=== PATIENT | male | born 1955 | race Caucasian/White ===

== ENCOUNTER 2017-04-16 13:23 | Inpatient (IN) | payer OTHER, MEDICARE ==
[~2017-04-16] VITALS: Ht 190.5 cm; Wt 132.0 kg
[2017-04-20] MEDS ORDERED: HYDR8TAB PO (11:54)
[2017-04-20] MEDS ORDERED: OMEP20TA PO (11:54)
[2017-04-20] MEDS ORDERED: METH10TA PO (11:54)
[2017-04-20] MEDS ORDERED: SIMV80TA PO (11:54)
[2017-04-20] MEDS ORDERED: POTA-255 PO (11:54)
[2017-04-20] MEDS ORDERED: LACTCAP8 PO (11:54)
[2017-04-20] MEDS ORDERED: VITA150T PO (11:54)
[2017-04-20] MEDS ORDERED: CHOL5000 PO (11:54)
[2017-04-20] MEDS ORDERED: MAGN500T2 PO (11:54)
[2017-04-20] MEDS ORDERED: LISI10TA3 PO (11:54)
[2017-04-23] MEDS ORDERED: ENOX40P SQ (07:07)
[2017-04-23] MEDS ORDERED: ASPI81CH37 CHEW (07:08)
[2017-04-23] MEDS ORDERED: POVIDONE IODINE 5% (ANTISEPSIS KIT) 4 APPLICATIONS EACH NARE PRN (07:15)
[2017-04-23] MEDS ORDERED: CHLORHEXIDINE GLUCONATE 4% SOLN 120 ML BTL TOPICAL SCH (07:15)
[2017-04-23] MEDS ORDERED: diphenhydrAMINE HCL 50 MG/ML VIAL IV PRN ×2 (07:15→17:30)
[2017-04-23] MEDS ORDERED: Post-op Orders (for Pharmacy) MISC XX ONE ×2 (07:15→17:30)
[2017-04-23] MEDS ORDERED: ONDANSETRON HCL 4 MG/2 ML VIAL IVP PRN ×2 (07:15→17:30)
[2017-04-23] MEDS ORDERED: METOPROLOL TARTRATE 25 MG TAB PO PRN (07:15)
[2017-04-23] MEDS ORDERED: POVIDONE IODINE 7.5% SCRUB 118 ML BOTTLE TOPICAL SCH (07:15)
[2017-04-23] MEDS ORDERED: CHLORHEXIDINE GLUCONATE 2 % 1 PACK (2 CLOTHS) TOPICAL PRN (07:15)
[2017-04-23] MEDS ORDERED: LACTATED RINGER'S 1000 ML IV PRN (07:15)
[2017-04-23] MEDS ORDERED: VANCOMYCIN 1000 MG/NS 250 ML (for <70 kg) IV SCH ×2 (07:15)
[2017-04-23] MEDS ORDERED: NALOXONE HCL 0.4 MG/ML AMP IV PRN ×2 (07:15→17:30)
[2017-04-23] MEDS ORDERED: SODIUM CHLORIDE 0.9% FLUSH 5 ML FLUSH IVF PRN ×2 (07:15→17:30)
[2017-04-23] MEDS ORDERED: INSULIN HUMAN REGULAR 1,000 UNITS/10 ML VIAL SQ PRN (07:15)
[2017-04-23] MEDS ORDERED: BISACODYL 10 MG SUPP RECTAL PRN ×2 (07:15→17:30)
[2017-04-23] MEDS ORDERED: MORPHINE SULFATE 4 MG/ML INJ IV PUSH PRN (07:15)
[2017-04-23] MEDS ORDERED: SODIUM CHLORID 0.9% 500 ML IV PRN (07:15)
[2017-04-23] MEDS ORDERED: TRANEXAMIC ACID IV SCH (07:30)
[2017-04-23] MEDS ORDERED: SODIUM CHLORIDE 0.9% IV SCH (07:30)
[2017-04-23] MEDS ORDERED: ROPIVACAINE PERI-ARTICULAR INJECTION. P-ARTICULR SCH ×5 (07:30)
[2017-04-23] MEDS ORDERED: TRANEXAMIC PERI-ARTICULAR 3,000 MG/NS 100 ML P-ARTICULR SCH ×2 (07:30)
[2017-04-23 07:37] VITALS: BP 135/81; PULSE 81; RESP 18; TEMP 98.9; O2SAT 94
[2017-04-23] MEDS ORDERED: DEXAMETHASONE SOD PHOS 20 MG/5 ML VIAL IV ONE (08:00)
[2017-04-23] MEDS ORDERED: SODIUM CHLOR 0.9% 1000 ML INJ 1,000 ML IV SCH (08:00)
[2017-04-23] MEDS ORDERED: BUPIVACAINE HCL PF 0.5% 30 ML VIAL NERV BLOCK ONE (08:49)
[2017-04-23] MEDS ORDERED: BUPIVACAINE LIPOSOME PF 1.3% 20 ML VIAL ONE (08:49)
[2017-04-23] MEDS ORDERED: DEXAMETHASONE SOD PHOS PF 10 MG/ML VIAL IV ONE (08:49)
[2017-04-23] MEDS ORDERED: VITAMIN B COMPLEX VIT C NO 4 PO SCH (09:00)
[2017-04-23] MEDS ORDERED: SODIUM CHLORIDE 0.9% FLUSH 5 ML FLUSH IVF SCH (09:00)
[2017-04-23] MEDS ORDERED: NON-FORMULARY DRUG (Potassium Gluconate (Potassium) 1 TAB) PO SCH (09:00)
[2017-04-23] MEDS: ceFAZolin 2 GM PREMIX 50 ML IV SCH ×3 (09:00→23:31)
[2017-04-23] MEDS ORDERED: DEXAMETHASONE SOD PHOS 4 MG/ML VIAL ONE (09:32)
[2017-04-23] MEDS ORDERED: FAMOTIDINE 20 MG/2 ML VIAL ONE (09:32)
[2017-04-23] MEDS: METHADONE HCL 10 MG TAB PO SCH ×3 (10:00→20:42)
[2017-04-23] MEDS ORDERED: cloNIDine HCL 0.1 MG TAB PO PRN (10:00)
[2017-04-23] MEDS ORDERED: GENTAMICIN SULFATE 80 MG/2 ML VIAL ONE (11:05)
[2017-04-23] MEDS ORDERED: NEOSTIGMINE 3 MG/3 ML SYR IV ONE (12:00)
[2017-04-23] MEDS ORDERED: ePHEDrine/NS 25 MG/5 ML SYR IV ONE ×2 (12:00)
[2017-04-23] MEDS ORDERED: PHENYLEPH/NS 1000 MCG/10 ML SYR IV ONE ×2 (12:00)
[2017-04-23] MEDS ORDERED: PROPOFOL 200 MG/20 ML AMP IV ONE ×2 (12:00)
[2017-04-23] MEDS ORDERED: LACTATED RINGER'S 1000 ML INJ 1,000 ML IV ONE ×2 (12:00)
[2017-04-23] MEDS ORDERED: ONDANSETRON HCL 4 MG/2 ML VIAL IV PUSH ONE ×2 (12:00)
[2017-04-23] MEDS ORDERED: DO NOT ADM ANY ANTICOAGULANT DRUGS PRN ×2 (12:48→19:30)
[2017-04-23] MEDS ORDERED: *HYDROmorphone PF 1 MG VIAL PERIprocedural Use ONLY ONE (12:51)
[2017-04-23] MEDS ORDERED: fentaNYL CITRATE 250 MCG/5 ML AMP ONE ×2 (12:53→18:38)
[2017-04-23] MEDS ORDERED: MIDAZOLAM HCL 2 MG/2 ML VIAL ONE (12:53)
[2017-04-23] MEDS ORDERED: *morphine SULFATE 8 MG/ML PERIprocedure ONLY ONE (13:03)
[2017-04-23] MEDS ORDERED: HYDROmorphone HCL PF 1 MG/ML VIAL IV ONE (13:15)
--- NOTE | 2017-04-23 13:33 | RADRPT ---
EXAM DATE/TIME: 04/23/2017 13:03 [facility] COMPARISON: No previous studies available for comparison. INDICATIONS : Post op right knee MEDICAL HISTORY : None. SURGICAL HISTORY : right knee ENCOUNTER: Initial ACUITY: 1 day PAIN SCORE: Non-responsive. LOCATION: Right knee FINDINGS: Patient is status post placement of a right knee prosthesis. There is good position and alignment of the prosthesis and bony structures. The bony structures are grossly intact. Postsurgical changes are present. CONCLUSION: Good position and alignment on this postoperative examination. Chiki Verdugo MD on April 23, 2017 at 13:30 Board Certified Radiologist. This report was verified electronically.
[2017-04-23] MEDS ORDERED: ceFAZolin 2 GM PREMIX 50 ML IV SCH (15:00)
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
[2017-04-23 15:16] VITALS: BP 134/68; PULSE 92; RESP 20; TEMP 98.4; O2SAT 96
--- NOTE | 2017-04-23 15:27 | PD.ORT.PN ---
Objective Vitals Vital Signs Date Time Temp Pulse Resp B/P Pulse Ox O2 Delivery O2 Flow Rate FiO2 04/23/17 14:15 97 12 112/62 97 Nasal Cannula 4 04/23/17 14:00 95 12 103/58 93 Nasal Cannula 4 04/23/17 13:45 81 12 107/56 92 Nasal Cannula 4 04/23/17 13:30 110 16 107/56 94 Nasal Cannula 4 04/23/17 13:15 99 13 112/64 97 Nasal Cannula 4 04/23/17 13:00 103 15 119/72 95 Nasal Cannula 4 04/23/17 12:42 98.2 108 12 134/86 91 Nasal Cannula 4 04/23/17 07:37 98.9 81 18 135/81 94 I/O 04/22/17 04/22/17 04/22/17 04/23/17 04/23/17 04/23/17 07:00 15:00 23:00 07:00 15:00 23:00 Intake Total 1200 ml Output Total 550 ml Balance 650 ml Intake Other 1200 ml Output Urine Total 500 ml Estimated Blood Loss 50 ml Imaging Last 24 hours Impressions Knee X-Ray 04/23/17 0705 Signed Impressions: Service Date/Time: Sunday, April 23, 2017 13:03 - CONCLUSION: Good position and alignment on this postoperative examination. Chiki Verdugo MD Assessment & Plan Ortho Post Op Day #: 0 Problem List: Assessment and Plan s/p Revision R TKA wbat daily dressing changes lovenox d/c planning home with [facility] and pt f/up dr. [place] 2 weeks Tony Preston Apr 23, 2017 15:27
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
--- NOTE | 2017-04-23 15:31 | HHI.FF ---
Face to Face Verification Diagnosis: (1) Primary localized osteoarthrosis, lower leg Physical Therapy Gait training, Safety evaluation, Transfer training, bed to chair Knee: Total knee, Protocol: Right, Full weight bearing Right LE Weight Bearing: WB as tolerated Nursing RN: 3 days/week x 2 weeks Nursing: Yennifer teaching, Dressing changes Dressing Changes: Do not change dressing I have seen patient Ab Valenzuela on 04/23/17. My clinical findings support the need for the requested home health care services because: Limited ability to care for self High risk of falls I certify that my clinical findings support that this patient is homebound because: Post-op weakness Unsteady gait/balance Tony Preston Apr 23, 2017 15:31
[2017-04-23] MEDS ORDERED: WALKER WHEELS/F1 MIS (15:34)
[2017-04-23] MEDS ORDERED: COMMODE 3-IN-11 MIS (15:34)
[2017-04-23] MEDS ORDERED: CPMMACHINE (15:34)
[2017-04-23 16:00] VITALS: BP 137/70; PULSE 92; RESP 20; TEMP 97.1; O2SAT 95
--- NOTE | 2017-04-23 16:51 | RADRPT ---
EXAM DATE/TIME: 04/23/2017 16:35 [facility] COMPARISON: KNEE RIGHT LTD (1 OR 2 VWS), April 23, 2017, 13:03. INDICATIONS : Evaluate knee for trauma, fell MEDICAL HISTORY : Arthritis. SURGICAL HISTORY : Total knee replacement, right. ENCOUNTER: Subsequent ACUITY: 1 day PAIN SCORE: 0/10 LOCATION: Right Knee FINDINGS: Two view examination of the right knee demonstrates a total knee prosthesis in place. No acute fractu re or dislocation is demonstrated. No significant joint effusion. Postsurgical changes are still demo nstrated on today's study. No significant change compared to the prior exam. CONCLUSION: Stable plain films of the right knee. Chiki Verdugo MD on April 23, 2017 at 16:48 Board Certified Radiologist. This report was verified electronically.
[2017-04-23] MEDS ORDERED: ZOLPIDEM TARTRATE 5 MG TAB PO PRN ×2 (17:30→21:00)
[2017-04-23] MEDS ORDERED: GENTAMICIN SULFATE 80 MG/2 ML VIAL IRRIGATION ONE (17:48)
[2017-04-23] MEDS ORDERED: SUGAMMADEX SODIUM 200 MG/2 ML VIAL IV PUSH ONE ×2 (18:11)
[2017-04-23 19:45] VITALS: BP 138/76; PULSE 89; RESP 18; TEMP 96.3; O2SAT 99
[2017-04-23] MEDS: PANTOPRAZOLE SOD 20 MG DELAYED RELEASE TAB PO SCH (20:42)
[2017-04-23] MEDS: SODIUM CHLORIDE 0.9% FLUSH 5 ML FLUSH IVF SCH (20:43)
[2017-04-23 20:45] VITALS: BP 112/78; PULSE 88; RESP 19; TEMP 97.6; O2SAT 98
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
[2017-04-23 21:39] VITALS: O2SAT 94
[2017-04-23] MEDS: MORPHINE SULFATE 4 MG/ML INJ IV PUSH PRN (23:37)
[2017-04-24] VITALS (8 sets, daily range): BP systolic 98–148; BP diastolic 56–85; PULSE 79–99; RESP 18–19; TEMP 96.6–98.7; O2SAT 93–99
[2017-04-24] MEDS: SODIUM CHLOR 0.9% 1000 ML INJ 1,000 ML IV SCH ×2 (04:00→12:47)
[2017-04-24] MEDS: MORPHINE SULFATE 4 MG/ML INJ IV PUSH PRN ×5 (04:36→22:07)
[2017-04-24 05:03] LABS: POTASSIUM 4.5 MEQ/L (3.5-5.1)
[2017-04-24 05:06] LABS: HEMATOCRIT 31.1 % (39.0-51.0); MEAN CORPUSCULAR HEMOGLOBIN 29.8 PG (27.0-34.0); MEAN CORPUSCULAR HGB CONC 33.1 % (32.0-36.0); PLATELET COUNT 173 TH/MM3 (150-450); RED BLOOD COUNT 3.46 MIL/MM3 (4.50-5.90); RED CELL DISTRIBUTION WIDTH 12.9 % (11.6-17.2); REVIEW FLAG FINAL; WHITE BLOOD COUNT 14.6 TH/MM3 (4.0-11.0)
[2017-04-24] MEDS: ceFAZolin 2 GM PREMIX 50 ML IV SCH ×2 (06:25→12:47)
[2017-04-24] MEDS: METHADONE HCL 10 MG TAB PO SCH ×5 (06:25→22:04)
[2017-04-24] MEDS: MAGNESIUM OXIDE 400 MG TAB PO SCH ×3 (08:00→17:18)
[2017-04-24] MEDS: VITAMIN B COMPLEX/VIT C TAB PO SCH (08:43)
[2017-04-24] MEDS: PANTOPRAZOLE SOD 20 MG DELAYED RELEASE TAB PO SCH ×2 (08:43→19:51)
[2017-04-24] MEDS: SODIUM CHLORIDE 0.9% FLUSH 5 ML FLUSH IVF SCH ×2 (08:44→19:52)
[2017-04-24] MEDS: LISINOPRIL 10 MG TAB PO SCH (08:44)
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
--- NOTE | 2017-04-24 10:39 | PD.ORT.PN ---
Subjective Subjective Remarks Patient comfortable. Pain controlled. Objective Vitals Vital Signs Date Time Temp Pulse Resp B/P Pulse Ox O2 Delivery O2 Flow Rate FiO2 04/24/17 08:34 98 Nasal Cannula 2.00 04/24/17 08:00 96.7 80 18 108/60 93 04/24/17 04:45 96.6 79 18 100/65 98 04/24/17 00:45 97.5 99 18 98/59 96 04/23/17 21:39 94 High Flow Nasal Cannula 2.00 04/23/17 20:45 97.6 88 19 112/78 98 04/23/17 19:57 Nasal Cannula 2.00 04/23/17 19:45 96.3 89 18 138/76 99 04/23/17 19:30 80 16 106/60 97 Nasal Cannula 2 04/23/17 19:15 89 16 107/59 97 Nasal Cannula 2 04/23/17 19:00 70 16 100/55 97 Nasal Cannula 2 04/23/17 18:45 71 16 106/58 99 Nasal Cannula 2 04/23/17 18:32 97.6 85 16 110/60 98 Nasal Cannula 2 04/23/17 16:00 97.1 92 20 137/70 95 04/23/17 15:16 98.4 92 20 134/68 96 04/23/17 14:15 97 12 112/62 97 Nasal Cannula 4 04/23/17 14:00 95 12 103/58 93 Nasal Cannula 4 04/23/17 13:45 81 12 107/56 92 Nasal Cannula 4 04/23/17 13:30 110 16 107/56 94 Nasal Cannula 4 04/23/17 13:15 99 13 112/64 97 Nasal Cannula 4 04/23/17 13:00 103 15 119/72 95 Nasal Cannula 4 04/23/17 12:42 98.2 108 12 134/86 91 Nasal Cannula 4 I/O 04/23/17 04/23/17 04/23/17 04/24/17 04/24/17 04/24/17 07:00 15:00 23:00 07:00 15:00 23:00 Intake Total 1200 ml 1390 ml 240 ml Output Total 550 ml 300 ml 700 ml Balance 650 ml 1090 ml -460 ml Intake Oral 240 ml 240 ml IV Total 150 ml Other 1200 ml 1000 ml Output Urine Total 500 ml 200 ml 700 ml Estimated Blood Loss 50 ml 100 ml # Bowel Movements 0 0 Result Diagram: 04/24/17 0415 04/24/17 0415 Imaging Last 24 hours Impressions Knee X-Ray 04/23/17 0705 Signed Impressions: Service Date/Time: Sunday, April 23, 2017 13:03 - CONCLUSION: Good position and alignment on this postoperative examination. Chiki Verdugo MD Objective Remarks Right knee dressing moderate bloody drainage noted dressing reinforced calves soft negative Sylvain's NVI Assessment & Plan Assessment and Plan s/p Revision R TKA POD #1 wbat orders to reinforce dressing daily dressing changes apply ice pack lovenox d/c planning home with [facility] and pt f/up dr. [place] 2 weeks Theodore Ryan Apr 24, 2017 10:38
[2017-04-24] MEDS ORDERED: ENOXAPARIN SODIUM 40 MG/0.4 ML SYRINGE SQ SCH (12:00)
[2017-04-24] MEDS: ENOXAPARIN SODIUM 40 MG/0.4 ML SYRINGE SQ SCH (17:18)
[2017-04-24] MEDS: DOCUSATE SODIUM 100 MG CAP PO SCH (19:51)
[2017-04-24] MEDS: MULTIVITAMINS/MINERALS THERAPEUTIC TAB PO SCH (19:51)
[2017-04-24] MEDS: HYDROmorphone HCL 4 MG TAB PO PRN (19:52)
--- NOTE | 2017-04-24 20:02 | MP ---
cc: CAMMIE MCMULLEN M.D. DATE OF SURGERY 04/23/2017 PREOPERATIVE DIAGNOSIS Right knee wound dehiscence status post fall, status post right total knee arthroplasty. POSTOPERATIVE DIAGNOSIS Right knee wound dehiscence status post fall, status post right total knee arthroplasty. PROCEDURE Irrigation debridement right knee with wound closure. SURGEON Dr. Cammie Mcmullen. NUTRITIONAL SERVICES [facility] [place] ANESTHES[facility]. ESTIMATED BLOOD LOSS 150 cc. TOURNIQUET TIME Zero minutes. COMPLICATIONS None. JUSTIFICATION The patient is a 61-year-old male who has undergone previous right total knee arthroplasty today. Postoperatively he decided to get up by himself and go to the bathroom without any assistance from the nursing staff. He apparently fell landing directly on the right knee. He developed pain and bleeding and the nursing staff examined the patient and saw that he had a complete dehiscence of his surgical wound. I was contacted. He was taken subsequently immediately to the operating room. The patient was counseled as to the risks, benefits and alternatives to an irrigation and debridement with wound closure. He did wish to proceed with surgery. PROCEDURE IN DETAILS A written consent was obtained. The patient identified by name, taken to the operating room, placed supine on the operating table. General anesthesia was administered as well as 2 grams of IV Ancef. The right lower extremity prepped and draped using isopropyl alcohol, Hibiclens solution and Chloraprep solution. After a time-out was performed a 10 blade scalpel was used to perform debridement to include skin, subcutaneous tissue as well as muscle and tendon and there was evidence of a dehiscence along the lateral capsule and this allowed for exposure to the joint. A thorough irrigation and debridement was performed with 6 liters sterile saline pulse lavage antibiotic impregnated solution. Subsequently the capsular dehiscence was closed primarily with #1 Vicryl suture. The subcutaneous layer was then closed with 2-0 Vicryl suture. Skin was closed Dermabond and jessa. Sterile dressing applied. The patient tolerated the procedure well with no intraoperative complications noted. MD MARYAM Mata/GRAYSON /6:26 PM /7:46 PM
[2017-04-24] MEDS ORDERED: DOCUSATE SODIUM 100 MG CAP PO SCH (21:00)
[2017-04-24] MEDS ORDERED: MULTIVITAMINS/MINERALS THERAPEUTIC TAB PO SCH (21:00)
[2017-04-25] VITALS (7 sets, daily range): BP systolic 90–133; BP diastolic 52–76; PULSE 93–110; RESP 17–20; TEMP 98.3–99.3; O2SAT 92–97
[2017-04-25] MEDS: HYDROmorphone HCL 4 MG TAB PO PRN ×5 (01:14→22:51)
[2017-04-25] MEDS: MORPHINE SULFATE 4 MG/ML INJ IV PUSH PRN (04:23)
[2017-04-25] MEDS: METHADONE HCL 10 MG TAB PO SCH ×5 (06:23→22:00)
[2017-04-25] MEDS: ENOXAPARIN SODIUM 40 MG/0.4 ML SYRINGE SQ SCH (07:55)
--- NOTE | 2017-04-25 08:14 | PD.ORT.PN ---
Subjective Post Op Day #: 2 Subjective Remarks painful knee. Objective Vitals Vital Signs Date Time Temp Pulse Resp B/P Pulse Ox O2 Delivery O2 Flow Rate FiO2 04/25/17 00:31 98.6 94 18 107/64 94 04/24/17 20:45 98.7 92 19 118/56 99 04/24/17 18:00 96 Nasal Cannula 2.00 04/24/17 16:00 97.3 86 19 119/64 96 04/24/17 12:00 97.0 87 18 110/67 96 04/24/17 08:34 98 Nasal Cannula 2.00 I/O 04/24/17 04/24/17 04/24/17 04/25/17 04/25/17 04/25/17 07:00 15:00 23:00 07:00 15:00 23:00 Intake Total 240 ml 480 ml 480 ml 480 ml Output Total 700 ml 1125 ml 350 ml 775 ml Balance -460 ml -645 ml 130 ml -295 ml Intake Oral 240 ml 480 ml 480 ml 480 ml Output Urine Total 700 ml 1125 ml 350 ml 775 ml # Voids 2 # Bowel Movements 0 0 0 Result Diagram: 04/24/17 0415 04/24/17 0415 Imaging Last 24 hours Impressions Knee X-Ray 04/23/17 0705 Signed Impressions: Service Date/Time: Sunday, April 23, 2017 13:03 - CONCLUSION: Good position and alignment on this postoperative examination. Chiki Verdugo MD Objective Remarks in bed, nad Right knee dressing bloody, removed bloody drainage from distal incision compression dressing applied no erythema calves soft negative Sylvain's NVI Assessment & Plan Ortho Post Op Day #: 2 Problem List: Assessment and Plan s/p Revision R TKA POD #2 fall after sx, s/p I&D with wound closure R TKA POD #2 wbat daily compression dressing changes or as needed apply ice pack hold lovenox today due to swelling and bloody drainage, discussed risks and benefits with patient hold CPM today d/c planning home with [facility] and pt f/up dr. [place] 2 weeks Tony Preston Apr 25, 2017 08:14
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
[2017-04-25] MEDS: SODIUM CHLORIDE 0.9% FLUSH 5 ML FLUSH IVF SCH (09:00)
[2017-04-25] MEDS: PANTOPRAZOLE SOD 20 MG DELAYED RELEASE TAB PO SCH ×2 (09:38→22:52)
[2017-04-25] MEDS: LISINOPRIL 10 MG TAB PO SCH (09:38)
[2017-04-25] MEDS: DOCUSATE SODIUM 100 MG CAP PO SCH ×2 (09:38→21:00)
[2017-04-25] MEDS: MULTIVITAMINS/MINERALS THERAPEUTIC TAB PO SCH ×2 (09:38→22:53)
[2017-04-25] MEDS: VITAMIN B COMPLEX/VIT C TAB PO SCH (09:38)
[2017-04-25] MEDS: MAGNESIUM OXIDE 400 MG TAB PO SCH ×3 (09:38→17:40)
[2017-04-25] MEDS: SODIUM CHLOR 0.9% 1000 ML INJ 1,000 ML IV SCH ×2 (09:40)
[2017-04-25 10:01] LABS: HEMATOCRIT 29.7 % (39.0-51.0); MEAN CELL VOLUME 88.8 FL (80.0-100.0); MEAN CORPUSCULAR HGB CONC 33.8 % (32.0-36.0); PLATELET COUNT 164 TH/MM3 (150-450); RED BLOOD COUNT 3.35 MIL/MM3 (4.50-5.90); REVIEW FLAG FINAL; WHITE BLOOD COUNT 11.9 TH/MM3 (4.0-11.0)
[2017-04-25 10:30] LABS: BICARBONATE 29.4 MEQ/L (21.0-32.0); POTASSIUM 4.1 MEQ/L (3.5-5.1)
--- NOTE | 2017-04-25 10:41 | MP ---
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 PROCEDURE Revision right total knee arthroplasty SURGEON Dr. Cammie Mcmullen CORRESPONDENCE SPECIALIST [facility]. BLOOD LOSS 50 mL COMPLICATIONS Implants used DePuy attune size eight rotating platform tibia baseplate, size eight rotating platform tibia baseplate, size 8 mm polyethylene tibial insert. size 41 patella. JUSTIFICATION The patient is a 61-year male who has undergone previous right knee uni-compartment arthroplasty for osteoarthritis. He has had sequential progression of pain and swelling is his right knee as related to his condition. He has failed conservative treatment and was counseled as to options of revision total knee arthroplasty. The risk of surgery were discussed which include but not limited to anesthesia, bleeding, infection, damage to nerves or blood vessels, pain, stiffness, instability, blood clots, pulmonary embolism, even . The patient's pain is severe. He has failed conservative treatments and does wish to proceed with surgical intervention. A written consent obtained. The patient identified by name, taken to the operating room, placed supine on the operating table. General anesthesia was administered as well as 2 grams of IV Ancef and 1 gram of IV vancomycin. A well-padded tourniquet was placed on the right thigh. The right extremity was prepped and draped using isopropyl alcohol, Hibiclens solution and Chloraprep solution. After time-out was performed, an Esmarch bandage was used to exsanguinate the right lower extremity. Inflated to 250 mmHg. A longitudinal incision was made over the anterior aspect of the right knee and also medially in line with the previous incision. The patella was everted. A patellar resection guide was used to resect 9 mm patella. A size 41 mm trial was placed. Three drill holes were placed and a 41 mm trial fit well. Attention was turned to the femur where an intramedullary guide lillian was placed. The distal femoral guide was set to remove 10 mm of distal femur 5 degrees off the anatomic alignment. Oscillating saw was used to perform the distal femoral cut. At this point, the saw blade was hitting the femoral component, but I got my initial resection line. I used this line to continue the cut and removal of the femoral component with both an oscillating saw and flexible osteotome. Once the femoral component was removed, I completed the saw cut with the oscillating saw and the distal femoral resection guide. Attention was turned to the tibia where the tibial component was noted to be loose. I was able to the elevate it easily with a flexible osteotome and remove this. At this point, an extramedullary tibial guide was set to resect 1 mm off the lowest portion of the tibial plateau. An oscillating saw was used to perform the tibial cut. At this point, attention was turned back to the femur where the AP sizing block measured size eight. The anterior reference three degree extra sizing guide was used to pin a size [address] and anterior and posterior chamfer cuts were performed. At this point, a size eight PCL box cut was pinned in place. A PCL was boxed with an oscillating saw. The medial and lateral meniscus remnants were removed as well as bone and soft tissue debris from posterior portion of the knee. A size eight tibia base was pinned in place to . Once evaluated trial component was cemented in place with the size 8 mm polyethylene tibial insert the leg achieved full extension at 0 degrees and flexion to 140. No evidence of tibial lift-off. Varus-valgus balance appeared appropriate and symmetric. The patella was noted to have a slight lateral tracking. A lateral release was performed which allowed for central patellar tracking. The knee was thoroughly irrigated with sterile saline pulse lavage antibiotic impregnated solution. The arthrotomy incision was closed with #1 Vicryl suture. Subcutaneous layer with 2-0 Vicryl suture. Skin was closed with Dermabond. Sterile dressing was applied. The patient tolerated procedure well. No intraoperative complications noted. Jad Preston, physician case management assistant, was present during the entire procedure to include patient positioning and procedure itself. The medical necessity of a physician case management assistant was indicated in the case due to the complexity of the procedure. He assisted with appropriate manipulation of the leg and also traction of muscle, tendon, bone as well as neurovascular structures. He assisted with removal of the prior failed arthroplasty along with preparation of bone cuts and also implantation of the new revision total knee arthroplasty. MD MARYAM Mata/ /12:19 PM /9:02 AM
[2017-04-25] MEDS: ACETAMINOPHEN 325 MG TAB PO PRN ×2 (12:15→18:49)
[2017-04-25] MEDS ORDERED: MAGNESIUM HYDROXIDE SUSP 30 ML CUP PO ONE (21:15)
[2017-04-26] VITALS (8 sets, daily range): BP systolic 74–128; BP diastolic 54–72; PULSE 79–120; RESP 18–22; TEMP 97.3–98.5; O2SAT 90–96
[2017-04-26] MEDS: HYDROmorphone HCL 4 MG TAB PO PRN ×4 (04:34→21:57)
[2017-04-26] MEDS: SODIUM CHLOR 0.9% 1000 ML INJ 1,000 ML IV SCH ×2 (06:00→16:00)
[2017-04-26 07:16] LABS: HEMATOCRIT 27.5 % (39.0-51.0); MEAN CELL VOLUME 88.9 FL (80.0-100.0); MEAN CORPUSCULAR HEMOGLOBIN 30.4 PG (27.0-34.0); MEAN CORPUSCULAR HGB CONC 34.2 % (32.0-36.0); PLATELET COUNT 152 TH/MM3 (150-450); RED BLOOD COUNT 3.09 MIL/MM3 (4.50-5.90); RED CELL DISTRIBUTION WIDTH 12.7 % (11.6-17.2); REVIEW FLAG FINAL; WHITE BLOOD COUNT 10.2 TH/MM3 (4.0-11.0)
[2017-04-26 07:32] LABS: BICARBONATE 34.3 MEQ/L (21.0-32.0)
--- NOTE | 2017-04-26 07:43 | PD.ORT.PN ---
Subjective Post Op Day #: 3 Subjective Remarks painful knee. thinks he is improving. Objective Vitals Vital Signs Date Time Temp Pulse Resp B/P Pulse Ox O2 Delivery O2 Flow Rate FiO2 04/26/17 04:00 98.1 104 18 102/61 95 04/26/17 00:00 97.8 79 18 125/63 95 04/25/17 22:58 97 114/59 04/25/17 20:00 98.3 110 20 97/52 96 04/25/17 18:42 18 04/25/17 18:36 21 04/25/17 16:00 99.3 93 18 118/59 97 04/25/17 13:15 18 04/25/17 12:00 98.4 103 17 90/61 96 04/25/17 10:39 18 04/25/17 09:26 92 21 04/25/17 08:00 98.5 109 18 133/76 93 I/O 04/25/17 04/25/17 04/25/17 04/26/17 04/26/17 04/26/17 07:00 15:00 23:00 07:00 15:00 23:00 Intake Total 480 ml 1380 ml 400 ml Output Total 775 ml 2025 ml 680 ml Balance -295 ml -645 ml -280 ml Intake Oral 480 ml 1380 ml 400 ml Output Urine Total 775 ml 2025 ml 680 ml # Bowel Movements 0 0 0 Result Diagram: 04/26/17 0623 04/26/17 0623 Imaging Last 24 hours Impressions Knee X-Ray 04/23/17 0705 Signed Impressions: Service Date/Time: Sunday, April 23, 2017 13:03 - CONCLUSION: Good position and alignment on this postoperative examination. Chiki Verdugo MD Objective Remarks in bed, nad Right knee dressing bloody, removed bloody drainage from distal incision, improved from yesterday compression dressing applied no erythema calves soft negative Sylvain's NVI Assessment & Plan Ortho Post Op Day #: 3 Problem List: Assessment and Plan s/p Revision R TKA POD #3 fall after sx, s/p I&D with wound closure R TKA POD #3 wbat daily compression dressing changes or as needed apply ice pack hold lovenox again today due to swelling and bloody drainage, discussed risks and benefits with patient. likely will be able to resume Sunday hold CPM today, likely resume Sunday d/c planning home with [facility] and pt f/up dr. [place] 2 weeks Tony Preston Apr 26, 2017 07:43
[2017-04-26] MEDS: METHADONE HCL 10 MG TAB PO SCH ×5 (07:50→23:34)
[2017-04-26] MEDS: MAGNESIUM OXIDE 400 MG TAB PO SCH ×3 (07:51→17:24)
[2017-04-26] MEDS: DOCUSATE SODIUM 100 MG CAP PO SCH ×2 (08:55→21:57)
[2017-04-26] MEDS: PANTOPRAZOLE SOD 20 MG DELAYED RELEASE TAB PO SCH ×2 (08:55→21:57)
[2017-04-26] MEDS: VITAMIN B COMPLEX/VIT C TAB PO SCH (08:55)
[2017-04-26] MEDS: LISINOPRIL 10 MG TAB PO SCH (08:55)
[2017-04-26] MEDS: MULTIVITAMINS/MINERALS THERAPEUTIC TAB PO SCH ×2 (08:55→21:57)
[2017-04-26] MEDS: SODIUM CHLORIDE 0.9% FLUSH 5 ML FLUSH IVF SCH ×2 (08:56→22:01)
--- NOTE | 2017-04-26 09:54 | HHI.PR ---
Subjective Remarks in no acute distress. complaining of some pain to the right knee. otherwise no other complaints. Objective Vitals Vital Signs Date Time Temp Pulse Resp B/P Pulse Ox O2 Delivery O2 Flow Rate FiO2 04/26/17 08:00 97.9 99 18 128/70 93 04/26/17 04:00 98.1 104 18 102/61 95 04/26/17 00:00 97.8 79 18 125/63 95 04/25/17 22:58 97 114/59 04/25/17 20:00 98.3 110 20 97/52 96 04/25/17 18:42 18 04/25/17 18:36 21 04/25/17 16:00 99.3 93 18 118/59 97 04/25/17 13:15 18 04/25/17 12:00 98.4 103 17 90/61 96 04/25/17 10:39 18 I/O 04/25/17 04/25/17 04/25/17 04/26/17 04/26/17 04/26/17 07:00 15:00 23:00 07:00 15:00 23:00 Intake Total 480 ml 1380 ml 400 ml Output Total 775 ml 2025 ml 680 ml Balance -295 ml -645 ml -280 ml Intake Oral 480 ml 1380 ml 400 ml Output Urine Total 775 ml 2025 ml 680 ml # Bowel Movements 0 0 0 Result Diagram: 04/26/17 0623 04/26/17 0623 Imaging Last Impressions Knee X-Ray 04/23/17 0705 Signed Impressions: Service Date/Time: Sunday, April 23, 2017 13:03 - CONCLUSION: Good position and alignment on this postoperative examination. Chiki Verdugo MD Hip X-Ray 04/23/17 0000 Signed Impressions: Service Date/Time: Sunday, April 23, 2017 20:23 - CONCLUSION: No evidence of recent bony injury. Arik Zapata MD Objective Remarks GENERAL: This is a well-nourished, well-developed patient, in no apparent distress. CARDIOVASCULAR: Regular rate and regular rhythm without murmurs, gallops, or rubs. RESPIRATORY: Clear to auscultation. Breath sounds equal bilaterally. No wheezes , rales, or rhonchi. GASTROINTESTINAL: Abdomen soft, non-tender, nondistended. Normal, active bowel sounds MUSCULOSKELETAL: right knee covered with clean dressing. NEURO: Alert & Oriented x4 to person, place, time, situation. Moves all ext x4 Medications and IVs Current Medications Hydromorphone HCl (Dilaudid) 8 mg Q4HR PRN PO SEE LABEL COMMENTS Last administered on 04/26/17 08:55; Start 04/23/17 at 08:00 Lisinopril (Prinivil) 10 mg DAILY PO Last administered on 04/26/17 08:55; Start 04/24/17 at 09:00 Methadone HCl (Dolophine) 10 mg 5 TIMES A DAY PO Last administered on 07:50; Start 04/23/17 at 10:00 Magnesium Oxide (Mag-Ox) 400 mg TIDAC PO Last administered on 04/26/17 07:51; Start 04/24/17 at 08:00 Pantoprazole Sodium (Protonix) 20 mg BID PO Last administered on 04/26/17 08:55 ; Start 04/23/17 at 21:00 Non-Formulary Medication 1 tab DAILY PO NS; Start 04/23/17 at 09:00; Status UNV Non-Formulary Medication 1 tab 1 tab DAILY PO NS; Start 04/23/17 at 09:00; Stop 04/23/17 at 20:02; Status DC Sodium Chloride (NS 1000 ml Inj) 1,000 ml @ 100 mls/hr Q10H IV ; Start 04/23/17 at 08:00; Stop 04/23/17 at 19:56; Status DC IV Flush (NS Flush) 2 ml UNSCH PRN IVF FLUSH AFTER USING IV ACCESS; Start at 07:15; Stop 04/23/17 at 20:09; Status DC IV Flush 2 ml 2 ml BID IVF ; Start 04/23/17 at 09:00; Stop 04/23/17 at 20:09; Status DC Cefazolin Sodium/ Dextrose (Ancef 2 Gm Premix) 50 ml @ 100 mls/hr Q6H IV ; Start 04/23/17 at 15:00; Stop 04/23/17 at 19:56; Status DC Miscellaneous Information (Post-op Orders (for Pharmacy)) STAT ONCE XX ; Start 04/23/17 at 07:15; Stop 04/23/17 at 07:44; Status DC Enoxaparin Sodium (Lovenox Inj) 40 mg Q24H SQ ; Start 04/24/17 at 12:00; Status Cancel Morphine Sulfate (Morphine Inj) 3 mg Q3H PRN IV PUSH 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; Start 04/23/17 at 07:15; Stop 04/23/17 at 20:09; Status DC Multivitamins/ Minerals Therapeutic (Theragran M Tab) 1 tab BID PO ; Start at 21:00; Stop 04/24/17 at 21:00; Status DC Ondansetron HCl (Zofran Inj) 4 mg Q6H PRN IVP NAUSEA OR VOMITING; Start at 07:15; Stop 04/23/17 at 20:09; Status DC Docusate Sodium (Colace) 100 mg BID PO ; Start 04/24/17 at 21:00; Stop 04/24/17 at 21:00; Status DC Zolpidem Tartrate (Ambien) 5 mg HS PRN PO SLEEP; Start 04/23/17 at 21:00; Stop 04/23/17 at 21:00; Status DC Bisacodyl (Dulcolax Supp) 10 mg DAILY PRN RECTAL CONSTIPATION; Start 04/23/17 at 07:15; Stop 04/23/17 at 20:05; Status DC Naloxone HCl (Narcan Inj) 0.4 mg UNSCH PRN IV RESPIRATORY RATE LESS THAN 10; Start 04/23/17 at 07:15; Stop 04/23/17 at 20:09; Status DC Diphenhydramine HCl 25 mg 25 mg Q6H PRN IV ITCHING; Start 04/23/17 at 07:15; Stop 04/23/17 at 20:06; Status DC Lactated Ringer's 1,000 ml @ 30 mls/hr Q24H PRN IV SEE LABEL COMMENTS Last administered on 04/23/17t 07:30; Start 04/23/17 at 07:15; Stop 04/23/17 at 13:06; Status DC Sodium Chloride (NS 500 ml Inj) 500 ml @ 30 mls/hr [id number] PRN IV SEE LABEL COMMENTS; Start 04/23/17 at 07:15; Stop 04/23/17 at 13:06; Status DC Metoprolol Tartrate (Lopressor) 25 mg MERGERS AND ACQUISITIONS MANAGER PRN PO SEE LABEL COMMENTS; Start 04/23/17 at 07:15; Stop 04/23/17 at 20:07; Status DC Povidone Iodine (Betadine 5% Antisepsis Kit) 1 applic MERGERS AND ACQUISITIONS MANAGER PRN EACH NARE SEE LABEL COMMENTS Last administered on 04/23/17 07:35; Start 04/23/17 at 07:15; Stop 04/23/17 at 20:07; Status DC Chlorhexidine Gluconate (Chlorhexidine 2% Cloth) 3 pack MERGERS AND ACQUISITIONS MANAGER PRN TOPICAL SEE LABEL COMMENTS Last administered on 04/23/17 07:00; Start 04/23/17 at 07:15; Stop 04/23/17 at 20:04; Status DC Insulin Human Regular (NovoLIN R INJ) See Protocol Table ... MERGERS AND ACQUISITIONS MANAGER PRN SQ SEE PROTOCOL TABLE; Start 04/23/17 at 07:15; Stop 04/23/17 at 20:07; Status DC Povidone Iodine (Betadine 7.5% Scrub) 1 applic ONCE TOPICAL Last administered on 04/23/17 07:45; Start 04/23/17 at 07:15; Stop 04/23/17 at 20:08; Status DC Chlorhexidine Gluconate 1 applic 1 applic ONCE TOPICAL ; Start 04/23/17 at 07:15 ; Stop 04/23/17 at 20:08; Status DC Cefazolin Sodium/ Dextrose 50 ml @ 100 mls/hr MERGERS AND ACQUISITIONS MANAGER IV Last administered on 04/23/17 17:30; Start 04/23/17 at 07:15; Stop 04/23/17 at 20:03; Status DC Vancomycin HCl 1000 mg/Sodium Chloride 250 ml @ 250 mls/hr MERGERS AND ACQUISITIONS MANAGER IV Last administered on 04/23/17 09:07; Start 04/23/17 at 07:15; Stop 04/23/17 at 20:03; Status DC Tranexamic Acid 1951 mg/Sodium Chloride 119.51 ml @ 200 mls/ hr ONCE IV Last administered on 04/23/17 10:15; Start 04/23/17 at 07:30; Stop 04/23/17 at 13:30; Status DC Ropivacaine 24.63 ml/Ketorolac Tromethamine 30 mg/Epinephrine HCl 0.5 mg/ Clonidine 80 mcg/ Sodium Chloride 100 ml @ 200 mls/hr ONCE P-ARTICULR Last administered on 04/23/17 11:38; Start 04/23/17 at 07:30; Stop 04/23/17 at 13:30; Status DC Tranexamic Acid/ Sodium Chloride (Cyklokapron Inj/ NS Inj) 130 ml @ 260 mls/hr ONCE P-ARTICULR ; Start 04/23/17 at 07:30; Stop 04/23/17 at 13:30; Status DC Dexamethasone Sodium Phosphate (Decadron Inj) 10 mg ONCE ONCE IV Last administered on 04/23/17 08:55; Start 04/23/17 at 08:00; Stop 04/23/17 at 08:01; Status DC Famotidine (Pepcid Inj) 20 mg STK-MED ONCE .ROUTE ; Start 04/23/17 at 09:32; Stop 04/23/17 at 09:33; Status DC Dexamethasone Sodium Phosphate (Decadron Inj) 4 mg STK-MED ONCE .ROUTE ; Start 04/23/17 at 09:32; Stop 04/23/17 at 09:33; Status DC Clonidine (Catapres) 0.1 mg Q6H PRN PO SBP> OR = 180, DBP> OR = 100; Start 04/23 at 10:00 Gentamicin Sulfate (Gentamicin Inj) 240 mg STK-MED ONCE .ROUTE Last administered on 04/23/17 10:34; Start 04/23/17 at 11:05; Stop 04/23/17 at 11:06; Status DC Hydromorphone HCl (*DILAUDID PF INJ PERIprocedural ONLY) 1 mg STK-MED ONCE .ROUTE Last administered on 04/23/17 12:51; Start 04/23/17 at 12:51; Stop at 12:52; Status DC Midazolam HCl (Versed Inj) 2 mg STK-MED ONCE .ROUTE ; Start 04/23/17 at 12:53; Stop 04/23/17 at 12:54; Status DC Fentanyl Citrate (fentaNYL INJ) 250 mcg STK-MED ONCE .ROUTE ; Start 04/23/17 at 12:53; Stop 04/23/17 at 12:54; Status DC Fentanyl Citrate (fentaNYL INJ) 100 mcg STK-MED ONCE .ROUTE ; Start 04/23/17 at 12:53; Stop 04/23/17 at 12:54; Status DC Morphine Sulfate (*morphine INJ PERIprocedure ONLY) 8 mg STK-MED ONCE .ROUTE Last administered on 04/23/17 13:03; Start 04/23/17 at 13:03; Stop 04/23/17 at 13: 04; Status DC Hydromorphone HCl (Dilaudid Pf Inj) 1 mg ONCE ONCE IV ; Start 04/23/17 at 13:15 ; Stop 04/23/17 at 13:16; Status DC Miscellaneous Information ALL NURSING DEPARTME... UNSCH PRN .XX SEE LABEL COMMENTS; Start 04/23/17 at 12:48; Stop 04/23/17 at 20:08; Status DC Sodium Chloride (NS 1000 ml Inj) 1,000 ml @ 100 mls/hr Q10H IV ; Start 04/23/17 at 18:00 IV Flush (NS Flush) 2 ml UNSCH PRN IVF FLUSH AFTER USING IV ACCESS; Start at 17:30 IV Flush 2 ml 2 ml BID IVF Last administered on 04/26/17 08:56; Start 04/23/17 at 21:00 Cefazolin Sodium/ Dextrose (Ancef 2 Gm Premix) 50 ml @ 100 mls/hr Q6H IV Last administered on 04/24/17 12:47; Start 04/24/17 at 00:00; Stop 04/24/17 at 12:29; Status DC Miscellaneous Information (Post-op Orders (for Pharmacy)) STAT ONCE XX ; Start 04/23/17 at 17:30; Stop 04/23/17 at 20:00; Status DC Enoxaparin Sodium (Lovenox Inj) 40 mg Q24H SQ Last administered on 04/24/17 17: 18; Start 04/24/17 at 17:30 Morphine Sulfate (Morphine Inj) 3 mg Q3H PRN IV PUSH 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 Last administered on 04/25/17 04:23; Start 04/23/17 at 17:30 Multivitamins/ Minerals Therapeutic (Theragran M Tab) 1 tab BID PO Last administered on 04/26/17 08:55; Start 04/24/17 at 21:00; Stop 06/23/17 at 20:59 Ondansetron HCl (Zofran Inj) 4 mg Q6H PRN IVP NAUSEA OR VOMITING; Start at 17:30 Docusate Sodium (Colace) 100 mg BID PO Last administered on 04/26/17 08:55; Start 04/24/17 at 21:00 Zolpidem Tartrate (Ambien) 5 mg HS PRN PO SLEEP; Start 04/23/17 at 17:30 Bisacodyl (Dulcolax Supp) 10 mg DAILY PRN RECTAL CONSTIPATION; Start 04/23/17 at 17:30 Naloxone HCl (Narcan Inj) 0.4 mg UNSCH PRN IV RESPIRATORY RATE LESS THAN 10; Start 04/23/17 at 17:30 Diphenhydramine HCl (Benadryl Inj) 25 mg Q6H PRN IV ITCHING; Start 04/23/17 at 17:30 Gentamicin Sulfate (Gentamicin Inj) 240 mg STK-MED ONCE IRRIGATION Last administered on 04/23/17 17:48; Start 04/23/17 at 17:48; Stop 04/23/17 at 17:49; Status DC Sugammadex Sodium (Bridion Inj) 200 mg STK-MED ONCE IV PUSH ; Start 04/23/17 at 18:11; Stop 04/23/17 at 18:12; Status DC Fentanyl Citrate (fentaNYL INJ) 250 mcg STK-MED ONCE .ROUTE ; Start 04/23/17 at 18:38; Stop 04/23/17 at 18:39; Status DC Miscellaneous Information ALL NURSING DEPARTME... UNSCH PRN .XX SEE LABEL COMMENTS; Start 04/23/17 at 19:30; Stop 04/24/17 at 19:29; Status DC Vitamin B Complex/ Vitamin C (Allbee C) 1 tab DAILY PO Last administered on 04/26 08:55; Start 04/24/17 at 09:00 Bupivacaine HCl (Marcaine Pf 0.5% Inj) 15 ml STK-MED ONCE NERV BLOCK ; Start 04/23/17 at 08:49; Stop 04/25/17 at 08:50; Status DC Dexamethasone Sodium Phosphate (Decadron Pf Inj) 2 mg STK-MED ONCE IV ; Start at 08:49; Stop 04/25/17 at 08:50; Status DC Bupivacaine Liposome (Exparel Pf 1.3% Inj) 30 ml STK-MED ONCE .XX ; Start at 08:49; Stop 04/25/17 at 08:50; Status DC Acetaminophen (Tylenol) 650 mg Q6H PRN PO HEADACHE Last administered on 18:49; Start 04/25/17 at 10:00 Magnesium Hydroxide (Milk Of Brent Liq) 30 ml ONCE ONCE PO Last administered on 04/25/17 22:53; Start 04/25/17 at 21:15; Stop 04/25/17 at 21:16; Status DC A/P Assessment and Plan This is a 61-year-old male with a history of right knee pain secondary to osteoarthritis. He underwent total knee arthroplasty with nerve block by Dr. Burgos. He underwent I&D with wound closure. Bloody drainage and swelling of right knee. Lovenox held per orthopedic surgery. Continue postoperative care with PT, wound care, incentive spirometer, DVT prophylaxis with Lovenox and continue with pain management. Postoperative anemia secondary to acute blood loss . Asymptomatic. Repeat CBC Hyperglycemia. A1c 5.7 Leukocytosis likely reactive. improved. Hypertension controlled on lisinopril. We'll continue and monitor Hyperlipidemia stable on Zocor GERD stable on Prilosec Lizabeth Wagner MD Apr 26, 2017 09:54
[2017-04-26] MEDS: ENOXAPARIN SODIUM 40 MG/0.4 ML SYRINGE SQ SCH (17:24)
[2017-04-26] MEDS: ACETAMINOPHEN 325 MG TAB PO PRN (23:35)
[2017-04-27] VITALS: BP 118/62; PULSE 101; RESP 22; TEMP 97.5; O2SAT 94
[2017-04-27] MEDS: SODIUM CHLOR 0.9% 1000 ML INJ 1,000 ML IV SCH ×2 (00:33→12:00)
[2017-04-27 04:00] VITALS: BP 139/72; PULSE 94; RESP 20; TEMP 96.2; O2SAT 95
[2017-04-27] MEDS: METHADONE HCL 10 MG TAB PO SCH ×2 (05:19→12:17)
[2017-04-27 07:15] VITALS: BP 112/72; PULSE 93; RESP 16; TEMP 96.4; O2SAT 94
[2017-04-27] MEDS: PANTOPRAZOLE SOD 20 MG DELAYED RELEASE TAB PO SCH (08:47)
[2017-04-27] MEDS: VITAMIN B COMPLEX/VIT C TAB PO SCH (08:47)
[2017-04-27] MEDS: LISINOPRIL 10 MG TAB PO SCH (08:47)
[2017-04-27] MEDS: MULTIVITAMINS/MINERALS THERAPEUTIC TAB PO SCH (08:47)
[2017-04-27] MEDS: MAGNESIUM OXIDE 400 MG TAB PO SCH ×2 (08:48→12:17)
[2017-04-27] MEDS: DOCUSATE SODIUM 100 MG CAP PO SCH (08:48)
[2017-04-27] MEDS: HYDROmorphone HCL 4 MG TAB PO PRN (08:56)
[2017-04-27] MEDS: SODIUM CHLORIDE 0.9% FLUSH 5 ML FLUSH IVF SCH (09:00)
--- NOTE | 2017-04-27 09:14 | PD.ORT.PN ---
Subjective Post Op Day #: 4 Subjective Remarks pain and strength improving. ready to go home. Objective Vitals Vital Signs Date Time Temp Pulse Resp B/P Pulse Ox O2 Delivery O2 Flow Rate FiO2 04/27/17 07:15 96.4 93 16 112/72 94 04/27/17 04:00 96.2 94 20 139/72 95 04/27/17 00:00 97.5 101 22 118/62 94 04/26/17 20:00 97.3 113 22 117/69 95 04/26/17 16:30 115/72 04/26/17 16:00 98.0 120 18 74/54 96 04/26/17 11:58 98.5 109 18 109/68 92 04/26/17 10:18 90 21 I/O 04/26/17 04/26/17 04/26/17 04/27/17 04/27/17 04/27/17 07:00 15:00 23:00 07:00 15:00 23:00 Intake Total 400 ml 900 ml 840 ml 780 ml Output Total 680 ml 900 ml Balance -280 ml 0 ml 840 ml 780 ml Intake Oral 400 ml 900 ml 840 ml 780 ml Output Urine Total 680 ml 900 ml # Voids 2 2 # Bowel Movements 0 1 0 1 Result Diagram: 04/26/17 0623 04/26/17 0623 Imaging Last 24 hours Impressions Knee X-Ray 04/23/17 0705 Signed Impressions: Service Date/Time: Sunday, April 23, 2017 13:03 - CONCLUSION: Good position and alignment on this postoperative examination. Chiki Verdugo MD Objective Remarks in bed, nad Right knee dressing bloody, removed scant drainage from distal incision, improved from yesterday compression dressing applied extensive ecchymosis RLE no erythema calves soft negative Sylvain's NVI Assessment & Plan Ortho Post Op Day #: 4 Problem List: Assessment and Plan s/p Revision R TKA POD #4 fall after sx, s/p I&D with wound closure R TKA POD #4 wbat daily compression dressing changes or as needed apply ice pack start 81mg aspirin swelling and bloody drainage slowly improving, discussed risks and benefits with patient. resume PT and CPM doppler US RLE prior to d/c d/c planning home with [facility] and pt - cleared today f/up dr. [place] 2 weeks Tony Preston Apr 27, 2017 09:14
--- NOTE | 2017-04-27 10:23 | RADRPT ---
EXAM DATE/TIME: 04/27/2017 09:46 [place] COMPARISON: No previous studies available for comparison. INDICATIONS : Right leg swelling. MEDICAL HISTORY : Hypercholesterolemia. Hypertension. GERD. Arthritis. Bulging disc. SURGICAL HISTORY : Testicular hernia repair. ORIF left elbow. Right partial knee replacement. Right ankle surgery. ENCOUNTER: Initial ACUITY: 1 day PAIN SCORE: 3/10 LOCATION: Right leg. TECHNIQUE: Venous ultrasound of the leg was performed from the inguinal ligament to the proximal calf. Real-saman e, color Doppler and spectral tracing, compression and augmentation techniques were used. FINDINGS: There is normal compressibility of the deep venous system from the inguinal region to the proximal ca lf. No echogenic clot is seen in the lumen of the common femoral, femoral, popliteal, and posterior tibial veins. There is a normal response of the venous system to proximal and distal augmentation an d respiration. CONCLUSION: 1. No sonographic evidence for right lower extremity DVT. Harry Amador MD on April 27, 2017 at 10:21 Board Certified Radiologist. This report was verified electronically.
--- NOTE | 2017-04-27 10:26 | HHI.PR ---
Subjective Remarks in no acute distress. pain is controlled. no new complaints. Objective Vitals Vital Signs Date Time Temp Pulse Resp B/P Pulse Ox O2 Delivery O2 Flow Rate FiO2 04/27/17 07:15 96.4 93 16 112/72 94 04/27/17 04:00 96.2 94 20 139/72 95 04/27/17 00:00 97.5 101 22 118/62 94 04/26/17 20:00 97.3 113 22 117/69 95 04/26/17 16:30 115/72 04/26/17 16:00 98.0 120 18 74/54 96 04/26/17 11:58 98.5 109 18 109/68 92 I/O 04/26/17 04/26/17 04/26/17 04/27/17 04/27/17 04/27/17 07:00 15:00 23:00 07:00 15:00 23:00 Intake Total 400 ml 900 ml 840 ml 780 ml Output Total 680 ml 900 ml Balance -280 ml 0 ml 840 ml 780 ml Intake Oral 400 ml 900 ml 840 ml 780 ml Output Urine Total 680 ml 900 ml # Voids 2 2 # Bowel Movements 0 1 0 1 Result Diagram: 04/26/17 0623 04/26/17 0623 Imaging Last Impressions Knee X-Ray 04/23/17 0705 Signed Impressions: Service Date/Time: Sunday, April 23, 2017 13:03 - CONCLUSION: Good position and alignment on this postoperative examination. Chiki Verdugo MD Hip X-Ray 04/23/17 0000 Signed Impressions: Service Date/Time: Sunday, April 23, 2017 20:23 - CONCLUSION: No evidence of recent bony injury. Arik Zapata MD Objective Remarks GENERAL: This is a well-nourished, well-developed patient, in no apparent distress. CARDIOVASCULAR: Regular rate and regular rhythm without murmurs, gallops, or rubs. RESPIRATORY: Clear to auscultation. Breath sounds equal bilaterally. No wheezes , rales, or rhonchi. GASTROINTESTINAL: Abdomen soft, non-tender, nondistended. Normal, active bowel sounds MUSCULOSKELETAL: right knee covered with clean dressing. NEURO: Alert & Oriented x4 to person, place, time, situation. Moves all ext x4 Medications and IVs Current Medications Hydromorphone HCl (Dilaudid) 8 mg Q4HR PRN PO SEE LABEL COMMENTS Last administered on 04/27/17 08:56; Start 04/23/17 at 08:00 Lisinopril (Prinivil) 10 mg DAILY PO Last administered on 04/27/17 08:47; Start 04/24/17 at 09:00 Methadone HCl (Dolophine) 10 mg 5 TIMES A DAY PO Last administered on 05:19; Start 04/23/17 at 10:00 Magnesium Oxide (Mag-Ox) 400 mg TIDAC PO Last administered on 04/27/17 08:48; Start 04/24/17 at 08:00 Pantoprazole Sodium (Protonix) 20 mg BID PO Last administered on 04/27/17 08:47 ; Start 04/23/17 at 21:00 Non-Formulary Medication 1 tab DAILY PO NS; Start 04/23/17 at 09:00; Status UNV Non-Formulary Medication 1 tab 1 tab DAILY PO NS; Start 04/23/17 at 09:00; Stop 04/23/17 at 20:02; Status DC Sodium Chloride (NS 1000 ml Inj) 1,000 ml @ 100 mls/hr Q10H IV ; Start 04/23/17 at 08:00; Stop 04/23/17 at 19:56; Status DC IV Flush (NS Flush) 2 ml UNSCH PRN IVF FLUSH AFTER USING IV ACCESS; Start at 07:15; Stop 04/23/17 at 20:09; Status DC IV Flush 2 ml 2 ml BID IVF ; Start 04/23/17 at 09:00; Stop 04/23/17 at 20:09; Status DC Cefazolin Sodium/ Dextrose (Ancef 2 Gm Premix) 50 ml @ 100 mls/hr Q6H IV ; Start 04/23/17 at 15:00; Stop 04/23/17 at 19:56; Status DC Miscellaneous Information (Post-op Orders (for Pharmacy)) STAT ONCE XX ; Start 04/23/17 at 07:15; Stop 04/23/17 at 07:44; Status DC Enoxaparin Sodium (Lovenox Inj) 40 mg Q24H SQ ; Start 04/24/17 at 12:00; Status Cancel Morphine Sulfate (Morphine Inj) 3 mg Q3H PRN IV PUSH Pain >7 when off [employer]; Start 04/23/17 at 07:15; Stop 04/23/17 at 20:09; Status DC Multivitamins/ Minerals Therapeutic (Theragran M Tab) 1 tab BID PO ; Start at 21:00; Stop 04/24/17 at 21:00; Status DC Ondansetron HCl (Zofran Inj) 4 mg Q6H PRN IVP NAUSEA OR VOMITING; Start at 07:15; Stop 04/23/17 at 20:09; Status DC Docusate Sodium (Colace) 100 mg BID PO ; Start 04/24/17 at 21:00; Stop 04/24/17 at 21:00; Status DC Zolpidem Tartrate (Ambien) 5 mg HS PRN PO SLEEP; Start 04/23/17 at 21:00; Stop 04/23/17 at 21:00; Status DC Bisacodyl (Dulcolax Supp) 10 mg DAILY PRN RECTAL CONSTIPATION; Start 04/23/17 at 07:15; Stop 04/23/17 at 20:05; Status DC Naloxone HCl (Narcan Inj) 0.4 mg UNSCH PRN IV RESPIRATORY RATE LESS THAN 10; Start 04/23/17 at 07:15; Stop 04/23/17 at 20:09; Status DC Diphenhydramine HCl 25 mg 25 mg Q6H PRN IV ITCHING; Start 04/23/17 at 07:15; Stop 04/23/17 at 20:06; Status DC Lactated Ringer's 1,000 ml @ 30 mls/hr Q24H PRN IV SEE LABEL COMMENTS Last administered on 04/23/17t 07:30; Start 04/23/17 at 07:15; Stop 04/23/17 at 13:06; Status DC Sodium Chloride (NS 500 ml Inj) 500 ml @ 30 mls/hr [id number] PRN IV SEE LABEL COMMENTS; Start 04/23/17 at 07:15; Stop 04/23/17 at 13:06; Status DC Metoprolol Tartrate (Lopressor) 25 mg MACHINE CARTON MARKER PRN PO SEE LABEL COMMENTS; Start 04/23/17 at 07:15; Stop 04/23/17 at 20:07; Status DC Povidone Iodine (Betadine 5% Antisepsis Kit) 1 applic MACHINE [employer] PRN EACH NARE SEE LABEL COMMENTS Last administered on 04/23/17 07:35; Start 04/23/17 at 07:15; Stop 04/23/17 at 20:07; Status DC Chlorhexidine Gluconate (Chlorhexidine 2% Cloth) 3 pack MACHINE [employer] PRN TOPICAL SEE LABEL COMMENTS Last administered on 04/23/17 07:00; Start 04/23/17 at 07:15; Stop 04/23/17 at 20:04; Status DC Insulin Human Regular (NovoLIN R INJ) See Protocol Table ... MACHINE [employer] MARKER PRN SQ SEE PROTOCOL TABLE; Start 04/23/17 at 07:15; Stop 04/23/17 at 20:07; Status DC Povidone Iodine (Betadine 7.5% Scrub) 1 applic ONCE TOPICAL Last administered on 04/23/17 07:45; Start 04/23/17 at 07:15; Stop 04/23/17 at 20:08; Status DC Chlorhexidine Gluconate 1 applic 1 applic ONCE TOPICAL ; Start 04/23/17 at 07:15 ; Stop 04/23/17 at 20:08; Status DC Cefazolin Sodium/ Dextrose 50 ml @ 100 mls/hr MACHINE [employer] MARK[employer] IV Last administered on 04/23/17 17:30; Start 04/23/17 at 07:15; Stop 04/23/17 at 20:03; Status DC Vancomycin HCl 1000 mg/Sodium Chloride 250 ml @ 250 mls/hr MACHINE C[employer] MARKER IV Last administered on 04/23/17 09:07; Start 04/23/17 at 07:15; Stop 04/23/17 at 20:03; Status DC Tranexamic Acid 1951 mg/Sodium Chloride 119.51 ml @ 200 mls/ hr ONCE IV Last administered on 04/23/17 10:15; Start 04/23/17 at 07:30; Stop 04/23/17 at 13:30; Status DC Ropivacaine 24.63 ml/Ketorolac Tromethamine 30 mg/Epinephrine HCl 0.5 mg/ Clonidine 80 mcg/ Sodium Chloride 100 ml @ 200 mls/hr ONCE P-ARTICULR Last administered on 04/23/17 11:38; Start 04/23/17 at 07:30; Stop 04/23/17 at 13:30; Status DC Tranexamic Acid/ Sodium Chloride (Cyklokapron Inj/ NS Inj) 130 ml @ 260 mls/hr ONCE P-ARTICULR ; Start 04/23/17 at 07:30; Stop 04/23/17 at 13:30; Status DC Dexamethasone Sodium Phosphate (Decadron Inj) 10 mg ONCE ONCE IV Last administered on 04/23/17 08:55; Start 04/23/17 at 08:00; Stop 04/23/17 at 08:01; Status DC Famotidine (Pepcid Inj) 20 mg STK-MED ONCE .ROUTE ; Start 04/23/17 at 09:32; Stop 04/23/17 at 09:33; Status DC Dexamethasone Sodium Phosphate (Decadron Inj) 4 mg STK-MED ONCE .ROUTE ; Start 04/23/17 at 09:32; Stop 04/23/17 at 09:33; Status DC Clonidine (Catapres) 0.1 mg Q6H PRN PO SBP> OR = 180, DBP> OR = 100; Start 04/23 at 10:00 Gentamicin Sulfate (Gentamicin Inj) 240 mg STK-MED ONCE .ROUTE Last administered on 04/23/17 10:34; Start 04/23/17 at 11:05; Stop 04/23/17 at 11:06; Status DC Hydromorphone HCl (*DILAUDID PF INJ PERIprocedural ONLY) 1 mg STK-MED ONCE .ROUTE Last administered on 04/23/17 12:51; Start 04/23/17 at 12:51; Stop at 12:52; Status DC Midazolam HCl (Versed Inj) 2 mg STK-MED ONCE .ROUTE ; Start 04/23/17 at 12:53; Stop 04/23/17 at 12:54; Status DC Fentanyl Citrate (fentaNYL INJ) 250 mcg STK-MED ONCE .ROUTE ; Start 04/23/17 at 12:53; Stop 04/23/17 at 12:54; Status DC Fentanyl Citrate (fentaNYL INJ) 100 mcg STK-MED ONCE .ROUTE ; Start 04/23/17 at 12:53; Stop 04/23/17 at 12:54; Status DC Morphine Sulfate (*morphine INJ PERIprocedure ONLY) 8 mg STK-MED ONCE .ROUTE Last administered on 04/23/17 13:03; Start 04/23/17 at 13:03; Stop 04/23/17 at 13: 04; Status DC Hydromorphone HCl (Dilaudid Pf Inj) 1 mg ONCE ONCE IV ; Start 04/23/17 at 13:15 ; Stop 04/23/17 at 13:16; Status DC Miscellaneous Information ALL NURSING DEPARTME... UNSCH PRN .XX SEE LABEL COMMENTS; Start 04/23/17 at 12:48; Stop 04/23/17 at 20:08; Status DC Sodium Chloride (NS 1000 ml Inj) 1,000 ml @ 100 mls/hr Q10H IV ; Start 04/23/17 at 18:00 IV Flush (NS Flush) 2 ml UNSCH PRN IVF FLUSH AFTER USING IV ACCESS; Start at 17:30 IV Flush 2 ml 2 ml BID IVF Last administered on 04/27/17 09:00; Start 04/23/17 at 21:00 Cefazolin Sodium/ Dextrose (Ancef 2 Gm Premix) 50 ml @ 100 mls/hr Q6H IV Last administered on 04/24/17 12:47; Start 04/24/17 at 00:00; Stop 04/24/17 at 12:29; Status DC Miscellaneous Information (Post-op Orders (for Pharmacy)) STAT ONCE XX ; Start 04/23/17 at 17:30; Stop 04/23/17 at 20:00; Status DC Enoxaparin Sodium (Lovenox Inj) 40 mg Q24H SQ Last administered on 04/24/17 17: 18; Start 04/24/17 at 17:30 Morphine Sulfate (Morphine Inj) 3 mg Q3H PRN IV PUSH Pain >7 when off [employer] Last administered on 04/25/17 04:23; Start 04/23/17 at 17:30 Multivitamins/ Minerals Therapeutic (Theragran M Tab) 1 tab BID PO Last administered on 04/27/17 08:47; Start 04/24/17 at 21:00; Stop 06/23/17 at 20:59 Ondansetron HCl (Zofran Inj) 4 mg Q6H PRN IVP NAUSEA OR VOMITING; Start at 17:30 Docusate Sodium (Colace) 100 mg BID PO Last administered on 04/27/17 08:48; Start 04/24/17 at 21:00 Zolpidem Tartrate (Ambien) 5 mg HS PRN PO SLEEP; Start 04/23/17 at 17:30 Bisacodyl (Dulcolax Supp) 10 mg DAILY PRN RECTAL CONSTIPATION; Start 04/23/17 at 17:30 Naloxone HCl (Narcan Inj) 0.4 mg UNSCH PRN IV RESPIRATORY RATE LESS THAN 10; Start 04/23/17 at 17:30 Diphenhydramine HCl (Benadryl Inj) 25 mg Q6H PRN IV ITCHING; Start 04/23/17 at 17:30 Gentamicin Sulfate (Gentamicin Inj) 240 mg STK-MED ONCE IRRIGATION Last administered on 04/23/17 17:48; Start 04/23/17 at 17:48; Stop 04/23/17 at 17:49; Status DC Sugammadex Sodium (Bridion Inj) 200 mg STK-MED ONCE IV PUSH ; Start 04/23/17 at 18:11; Stop 04/23/17 at 18:12; Status DC Fentanyl Citrate (fentaNYL INJ) 250 mcg STK-MED ONCE .ROUTE ; Start 04/23/17 at 18:38; Stop 04/23/17 at 18:39; Status DC Miscellaneous Information ALL NURSING DEPARTME... UNSCH PRN .XX SEE LABEL COMMENTS; Start 04/23/17 at 19:30; Stop 04/24/17 at 19:29; Status DC Vitamin B Complex/ Vitamin C ([place]bee C) 1 tab DAILY PO Last administered on 04/27 08:47; Start 04/24/17 at 09:00 Bupivacaine HCl (Marcaine Pf 0.5% Inj) 15 ml STK-MED ONCE NERV BLOCK ; Start 04/23/17 at 08:49; Stop 04/25/17 at 08:50; Status DC Dexamethasone Sodium Phosphate (Decadron Pf Inj) 2 mg STK-MED ONCE IV ; Start at 08:49; Stop 04/25/17 at 08:50; Status DC Bupivacaine Liposome (Exparel Pf 1.3% Inj) 30 ml STK-MED ONCE .XX ; Start 7/3/ 17 at 08:49; Stop 04/25/17 at 08:50; Status DC Acetaminophen (Tylenol) 650 mg Q6H PRN PO HEADACHE Last administered on 23:35; Start 04/25/17 at 10:00 Magnesium Hydroxide (Milk Of Brent Liq) 30 ml ONCE ONCE PO Last administered on 04/25/17 22:53; Start 04/25/17 at 21:15; Stop 04/25/17 at 21:16; Status DC A/P Assessment and Plan This is a 61-year-old male with a history of right knee pain secondary to osteoarthritis. He underwent total knee arthroplasty with nerve block by Dr. Burgos. He underwent I&D with wound closure. Bloody drainage and swelling of right knee. Lovenox held per orthopedic surgery. Continue postoperative care with PT, wound care, incentive spirometer, DVT prophylaxis with Lovenox and continue with pain management. Postoperative anemia secondary to acute blood loss . Asymptomatic. Hyperglycemia. A1c 5.7 Leukocytosis likely reactive. improved. Hypertension controlled on lisinopril. We'll continue and monitor Hyperlipidemia stable on Zocor GERD stable on Prilosec Lizabeth Wagner MD Apr 27, 2017 10:26
[2017-04-27 12:51] VITALS: BP 133/70; PULSE 95; RESP 16; TEMP 97.2; O2SAT 96
--- NOTE | 2017-04-30 13:12 | MD ---
cc: CAMMIE BURGOS ADMISSION DATE: 04/23/2017 DISCHARGE DATE: 04/27/2017 ADMISSION DIAGNOSIS Severe degenerative osteoarthritis right knee with failure of right knee uni-arthroplasty. DISCHARGE DIAGNOSIS Severe degenerative osteoarthritis right knee with failure of right knee uni-arthroplasty. HISTORY OF PRESENT ILLNESS Mr. Valenzuela is a 61-year-old male who has been treated by Dr. Cammie Burgos of the [facility] for many years. He has a history of a right partial knee replacements approximately 7 years ago. He has had a progression of right knee pain over the last 2 years. Currently he states the right knee pain is inhibiting his activities of daily living. He has severe aching sensation aggravating weightbearing activities. In the past he has been treated with cortisone injections, knee bracing, physical therapy, home exercise program and even injections prior to his right partial knee replacements. He does have x-ray evidence of progression of arthritis in the patellofemoral compartment and lateral compartment of the right knee. While in the office the patient was counseled on his diagnosis and treatment options. Risks, benefits, indications were all discussed in great detail. The patient elected to proceed with revision right total knee arthroplasty. DATE OF SURGERY 04/23/2017: 1. Revision right total knee arthroplasty. 2. Irrigation and debridement with wound closure of right total knee arthroplasty status post fall. POSTOP After surgery the patient was admitted to [facility] where he received appropriate medical management, pain control, DVT prophylaxis as well as physical therapy. The afternoon after surgery the patient was trying to go to the restroom without any assistance from staff and had a fall landing on his right knee. He subsequently had wound dehiscence and did have to go back to the operating room for irrigation of the right knee with wound closure. DISCHARGE Once being discharged from the hospital the patient is cleared to go home where he will receive home health care and home physical therapy. He is in stable condition, he may weight-bear as tolerated. He is to receive daily dressing changes and has been instructed on appropriate wound care management. The patient has been provided prescriptions for pain control as well as DVT prophylaxis medication. He has also been provided a follow-up appointment in approximately 2 weeks from his date of surgery. The patient has asked appropriate questions which have been answered. The patient is cleared for discharge. Dictated by: LOLA Durham MD MARYAM Mata/ÁLVARO /9:23 AM /1:15 PM
== END 2017-04-27 14:13 | disposition home health service (06) | DRG 467 ==
LOC: HSDI 04-23 06:49 → N06B 04-23 14:38
PROVIDERS: ADMIT Orthopaedic Surgery Sports Medicine; ATTEND Orthopaedic Surgery Sports Medicine
PROC: 0SRC0J9 Replacement of Right Knee Joint with Synthetic Substitute, Cemented, Open Approach (ICD-10-PCS; 2017-04-23)
PROC: 0YQF0ZZ Repair Right Knee Region, Open Approach (ICD-10-PCS; 2017-04-23)
PROC: 0SPC0JZ Removal of Synthetic Substitute from Right Knee Joint, Open Approach (ICD-10-PCS; principal; 2017-04-23 09:42)
DX: T84.032A Mechanical loosening of internal right knee prosthetic joint, initial encounter (principal); T81.32XA Disruption of internal operation (surgical) wound, not elsewhere classified, initial encounter; D62 Acute posthemorrhagic anemia; I10 Essential (primary) hypertension; Y83.1 Surgical operation with implant of artificial internal device as the cause of abnormal reaction of the patient, or of later complication, without mention of misadventure at the time of the procedure; W01.0XXA Fall on same level from slipping, tripping and stumbling without subsequent striking against object, initial encounter; Y92.230 Patient room in hospital as the place of occurrence of the external cause; E78.5 Hyperlipidemia, unspecified; K21.9 Gastro-esophageal reflux disease without esophagitis; E66.9 Obesity, unspecified; Z68.36 Body mass index [BMI] 36.0-36.9, adult; R73.9 Hyperglycemia, unspecified; G89.29 Other chronic pain; M25.511 Pain in right shoulder
CPT/HCPCS: 73502; 73560; 80048; 83036; 85027; 86850; 86900; 86901; 93971; 94150; C1776; C9290; J0171; J0690; J0735; J1100; J1170; J1580; J1650; J1885; J2250; J2270; J2370; J2405; J2710; J2795; J3010; J3370; J7050; J7120; L1830